=== PATIENT | male | born 1980 | race Caucasian/White ===

== ENCOUNTER 2016-08-21 11:09 | Emergency (ER) | payer OTHER ==
[2016-08-21] MEDS ORDERED: TORAdol 30 mg Injection IM ONE (11:47)
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
[2016-08-21] MEDS ORDERED: TORAdol 30 mg Injection ONE (11:57)
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
[2016-08-21 13:32] VITALS: BP 134/70; PULSE 76; O2SAT 100
== END 2016-08-21 13:32 | disposition home or self-care (01) ==
LOC: ED 11:09
DX: S70.01XA Contusion of right hip, initial encounter (principal); M25.551 Pain in right hip; S70.211A Abrasion, right hip, initial encounter; S50.811A Abrasion of right forearm, initial encounter; M54.5 Low back pain; V86.59XA Driver of other special all-terrain or other off-road motor vehicle injured in nontraffic accident, initial encounter
CPT/HCPCS: 71020; 72100; 73502; 96372; 99284; J1885